=== PATIENT | male | born 1995 | race African-American/Black ===

== ENCOUNTER 2019-01-04 17:32 | Emergency (ER) | payer OTHER ==
[~2019-01-04] VITALS: Ht 177.8 cm; Wt 84.1 kg
[2019-01-04] MEDS ORDERED: DERMABOND TOPICAL SKIN ADHESIVE TOP ONE (20:00)
[2019-01-04 20:35] VITALS: BP 143/68
--- NOTE | 2019-01-04 20:45 | REPVR ---
EXAM: CT Orbits Without Contrast EXAM DATE/TIME: 01/04/2019 7:59 PM CLINICAL HISTORY: 23 years old, male; Injury or trauma; Fall; Initial encounter; Blunt trauma (contusions or hematomas); Orbit/periorbital; Left; Additional info: Hit in eye TECHNIQUE: Axial computed tomography images of the orbits without intravenous contrast. All CT scans at this facility use at least one of these dose optimization techniques: automated exposure control; mA and/or kV adjustment per patient size (includes targeted exams where dose is matched to clinical indication); or iterative reconstruction. Coronal and sagittal reformatted images were created and reviewed. COMPARISON: No relevant prior studies available. FINDINGS: Orbits: No acute intraorbital abnormality. Globes are unremarkable. Sinuses: Minimal left inferior frontal and ethmoid sinus mucosal thickening. Bones/joints: No acute fracture. Soft tissues: Slight left forehead soft tissue swelling. Sella: Mild ballooning of the sella, left greater than right. IMPRESSION: 1. Slight left forehead soft tissue swelling. 2. Minimal left inferior frontal and adjacent ethmoid sinus disease. 3. Mild ballooning of the sella, left greater than right. 4. Otherwise negative CT orbits. Electronically signed by: Sandro Sepulveda On 01/04/2019 20:44:45 PM
== END 2019-01-04 20:58 | disposition home or self-care (01) ==
LOC: M ED 17:32
DX: S01.112A Laceration without foreign body of left eyelid and periocular area, initial encounter (principal); S00.83XA Contusion of other part of head, initial encounter; S06.0X0A Concussion without loss of consciousness, initial encounter; W22.8XXA Striking against or struck by other objects, initial encounter; Y92.89 Other specified places as the place of occurrence of the external cause; Y93.9 Activity, unspecified; Y99.0 Civilian activity done for income or pay; Z87.891 Personal history of nicotine dependence

== ENCOUNTER → 2019-03-01 | Outpatient (CLI) | payer OTHER ==
--- NOTE | 2019-03-01 15:47 | ECHO ---
DATE OF STUDY: 03/01/2019 REFERRING INDIVIDUAL: ANA Ashton INDICATION: Left ventricular hypertrophy. HEIGHT: 180 cm WEIGHT: 82.6 kg 2-D MEASUREMENTS: Aortic root: 2.6 cm Left atrium: 3.7 cm Ventricular septum: 1.05 cm Posterior wall: 1.11 cm Left ventricle diastole: 5.0 cm Aortic annulus: 2.0 cm Inferior vena cava: 1.9 cm DOPPLER MEASUREMENTS: Aortic valve velocity: 162 cm/s LVOT velocity: 158 cm/s LVOT VTI: 24.4 cm Trace mitral regurgitation. Mitral E velocity: 71.8 cm/s Mitral A velocity: 34.4 cm/s Mitral deceleration time: 201 ms Trace tricuspid regurgitation. Trace pulmonic regurgitation. Pulmonary artery systolic pressure 22 mmHg by pulmonary acceleration time method. MITRAL ANNULAR TISSUE DOPPLER: E prime septal: 11.7 cm/s E prime lateral: 20.9 cm/s DESCRIPTION: Rhythm was sinus. Image quality was good. No pericardial effusion. CONCLUSIONS: 1. Normal left ventricle internal dimensions and wall thickness. Normal regional LV wall motion and wall thickening. Normal LV systolic function. Left ventricular ejection fraction (LVEF) 55% (3D) which was within normal limits. Normal LV diastolic function. 2. Normal right ventricle size and systolic function. 3. Tiny either some kind of atrial defect or tiny patent foramen ovale detected by a small amount of color flow Doppler shunting between the atria. 4. Otherwise, normal appearing echocardiogram-Doppler findings.
== END ==
LOC: M CARPUL 10:20
PROVIDERS: ATTEND Physician Assistant
DX: Z86.79 Personal history of other diseases of the circulatory system (principal)